=== PATIENT | female | born 1970 | race Caucasian/White ===

== ENCOUNTER 2016-04-29 16:18 | Emergency (ER) | payer OTHER ==
[~2016-04-29] VITALS: Ht 165.1 cm; Wt 100.4 kg
[~2016-04-29 16:18] MED LIST: ADIPEX-P37.5 MG PO; ADVIL200 MG PO; AMLODIPINE BESY10 MG PO; AMLODIPINE BESYL5 MG PO; CYCLOBENZAPRINE5 MG PO; ELAVIL10 MG PO; FLEXERIL10 MG PO; GABAPENTIN100 MG PO; GABAPENTIN300 MG PO; HYDROCHLOROTH12.5 M3 PO; IBUPROFEN100 M2 PO; LEVOTHYROXINE100 MCG PO; LEVOTHYROXINE112 MCG PO; LISINOPRIL-HCT1 EACH; LISINOPRIL-HCT1 EACH PO; LISINOPRIL10 MG PO; LISINOPRIL20 MG PO; METFORMIN HCL500 MG PO; NEURONTIN600 MG PO; OXAYDO5 MG PO; OXYCODONE20 MG PO; PREDNISONE10 MG PO; TEMAZEPAM7.5 MG PO; TORADOL10 MG PO; VITAMIN D2000 UNIT PO; VITAMIN D34000 UNIT PO; ZESTORETIC 10-1 EAC1 PO
[2016-04-29 17:14] LABS: BASOPHIL COUNT 0.1 K/uL (0-0.1); EOSINOPHIL (%) 1.4 % (0-5); EOSINOPHIL COUNT 0.1 K/uL (0-0.3); HEMATOCRIT 37.6 % (36.0-46.0); IMMATURE GRANULOCYTE (%) 0.2 % (0.0-0.7); IMMATURE GRANULOCYTE COUNT 0.2 K/uL; LYMPHOCYTE COUNT 1.5 K/uL (1.0-2.8); MCH 27.6 PG (29.0-34.0); MCHC 33.5 G/DL (30.0-36.0); MCV 82.5 FL (83-99); MONOCYTE (%) 7.5 % (3-12); MONOCYTE COUNT 0.7 K/uL (0-0.8); NEUTROPHIL (%) 75.3 % (45-76); NEUTROPHIL COUNT 7.4 K/uL (1.8-6.4); PLATELET COUNT 213 K/uL (156-360); RBC DIS.WIDTH-CV 14.6 % (11.8-14.6); RED BLOOD COUNT 4.56 M/uL (3.80-5.20); WHITE BLOOD COUNT 9.9 K/uL (4.1-10.2)
[2016-04-29 17:23] LABS: CHLORIDE 107 mEq/L (99-109); POTASSIUM 3.5 mEq/L (3.7-5.4); SODIUM 139 mEq/L (136-147)
[2016-04-29 17:24] LABS: GLUCOSE 106 mg/dL (70-99)
[2016-04-29 17:26] LABS: ANION GAP 8 MEQ/L (2-14)
[2016-04-29 17:28] LABS: GFR ESTIMATE (CALCULATED) > 59 mL/min/
[2016-04-29 17:29] LABS: UREA NITROGEN (BUN) 9 mg/dL (9-23)
[2016-04-29 19:15] LABS: ADD MIUA? YES; BILIRUBIN NEGATIVE; BLOOD SMALL; COLOR YELLOW ((YELLOW)); GLUCOSE (STRIP) NEGATIVE; KETONES 5; LEUKOCYTES SMALL; NITRITE NEGATIVE; PROTEIN (STRIP) NEGATIVE; SPECIFIC GRAVITY 1.005 (1.000-1.030); UROBILINOGEN 0.2 MG/DL (0.2-1.0)
[2016-04-29 19:19] LABS: BACTERIA 3+ /HPF; EPITHELIAL CELLS 1+ /HPF; MUCUS TRACE /LPF; RED BLOOD CELLS 0-5 /HPF (0-5); UNCLASSIFIED CRYSTALS 1+ /HPF; WHITE BLOOD CELLS 0-5 /HPF (0-5)
[2016-04-29] MEDS ORDERED: PERCOCET 5/31 TABLET PO (21:17)
[2016-04-29] MEDS ORDERED: CIPRO500 MG PO (21:17)
[2016-04-29] MEDS ORDERED: FLAGYL500 MG PO (21:17)
[2016-04-29 21:52] VITALS: BP 137/76
== END 2016-04-29 21:54 | disposition home or self-care (01) ==
LOC: EME 16:18
PROVIDERS: Emergency Medicine
DX: K57.32 Diverticulitis of large intestine without perforation or abscess without bleeding (principal); I10 Essential (primary) hypertension; E11.9 Type 2 diabetes mellitus without complications; Z79.52 Long term (current) use of systemic steroids; Z87.891 Personal history of nicotine dependence
CPT/HCPCS: 74176; 80048; 81003; 85025; 99281; 99285; J0744; J2270; J2405; J7030; S0030

== ENCOUNTER → 2017-06-12 | Outpatient (CLI) | payer OTHER ==
[~2017-06-12] MED LIST changes: +CIPRO500 MG PO; +FLAGYL500 MG PO; +PERCOCET 5/31 TABLET PO
== END | disposition home or self-care (01) ==
LOC: NUC 10:35
DX: R91.8 Other nonspecific abnormal finding of lung field (principal); R07.81 Pleurodynia
CPT/HCPCS: 71046; 78582; A9540; A9567